=== PATIENT | female | born 1970 | race Caucasian/White ===

== ENCOUNTER 2020-09-04 17:15 | Emergency (ER) | payer SELFPAY ==
[~2020-09-04] VITALS: Ht 165.1 cm; Wt 108.9 kg
[2020-09-04 17:18] VITALS: BP 113/77; Ht 165.1 cm; Wt 108.9 kg
== END 2020-09-04 17:53 | disposition left against medical advice (07) ==
LOC: ED 17:15
DX: Z53.21 Procedure and treatment not carried out due to patient leaving prior to being seen by health care provider (principal)